=== PATIENT | female | born 1965 ===

== ENCOUNTER → 2023-02-20 13:07 | Outpatient (CLI) | payer BC | END | disposition home or self-care (01) | LOC: LAB 13:07 | PROVIDERS: ATTEND Internal Medicine Sports Medicine | DX: C73 Malignant neoplasm of thyroid gland (principal); E89.0 Postprocedural hypothyroidism ==

== ENCOUNTER → 2023-02-20 | Outpatient (CLI) | payer BC | END | disposition home or self-care (01) | LOC: SONOGRAMA 12:49 | PROVIDERS: ATTEND Internal Medicine Sports Medicine | DX: Z85.850 Personal history of malignant neoplasm of thyroid (principal); E89.0 Postprocedural hypothyroidism ==

== ENCOUNTER 2024-05-10 08:44 | Outpatient (CLI) | payer BC | END 2024-05-10 09:19 | disposition home or self-care (01) | LOC: MRI 08:44 | PROVIDERS: ATTEND Internal Medicine Sports Medicine | DX: M54.30 Sciatica, unspecified side (principal) | CPT/HCPCS: 72148 ==

== ENCOUNTER → 2024-05-16 10:09 | Outpatient (CLI) | payer BC | END | disposition home or self-care (01) | LOC: NUCLEAR 10:09 | PROVIDERS: ATTEND Internal Medicine Sports Medicine | DX: M81.0 Age-related osteoporosis without current pathological fracture (principal) ==